=== PATIENT | female | born 1930 | race African-American/Black ===

== ENCOUNTER 2018-06-03 11:37 | Inpatient (IN) | payer MEDICARE ==
[2018-06-03 12:21] LABS: Bilirubin Small (Negative); Blood, Urine Moderate (Negative); Clarity CLOUDY (Clear); Glucose, Urine (Dipstick) Negative (Negative); Leukocyte Negative (Negative); Nitrite Negative (Negative); Protein, Urine (Dipstick) > or equal to 300 mg/dL (Neg-Trace); Specific Gravity, Urine 1.022 (1.002-1.036); pH, Urine 5.5 (5.0-9.0)
[2018-06-03 12:24] LABS: Bacteria/HPF None Seen HPF (None Seen); Pathc Cast-AUWi Flag 1.01 (0-2.49); RBC/HPF 0-3 HPF (0-3); WBC/HPF 0-3 HPF (0-3)
[2018-06-03 12:32] LABS: #Lymphocytes 0.5 thou/uL (1.20-3.40); #Monocytes 0.5 thou/uL (0.11-0.59); #Neutrophils 5.1 thou/uL (1.40-6.50); %Eosinophils 0.5 % (0.0-10.0); %Lymphocytes 8.4 % (21.0-51.0); %Monocytes 7.4 % (0.0-10.0); %Neutrophils 83.7 % (42.0-75.0); Hemoglobin 9.7 g/dL (12.0-16.0); Mean Corpuscular HGB CONC 30.9 g/dL (32.0-36.0); Mean Corpuscular Hemoglobin 29.5 pg (27.0-31.0); Mean Corpuscular Volume 95.2 fL (78.0-98.0); Mean Platelet Volume 11.4 fL (7.4-10.4); Platelet Count 139 thou/uL (130-400); RBC Distribution Width 17.7 % (11.5-14.5); Red Blood Cell (RBC) Count 3.31 mill/uL (4.20-5.40); White Blood Cell (WBC) Count 6.1 thou/uL (4.8-10.8)
[2018-06-03 12:36] LABS: Hyaline Casts/LPF 0-3 HYALINE CAST LPF (0-3 Hyaline)
[2018-06-03 12:37] LABS: Renal Epithelial 0-3 HPF (0-3); Squamous Epithelial 0-3 HPF (0-3); Transitional Epithelial 0-3 HPF (0-3)
[2018-06-03 12:58] LABS: ALT (SGPT) 20 U/L (8-55); AST (SGOT) 92 U/L (5-34); Albumin 3.2 g/dL (3.4-4.8); Alkaline Phosphatase 186 U/L (40-150); Anion Gap 18 mmol/L (10-20); BUN (Urea Nitrogen) 77 mg/dL (9.8-20.1); Bilirubin, Total 0.6 mg/dL (0.2-1.2); Calc. Creatinine Clearance 0 mL/min (70-130); Calcium 8.1 mg/dL (7.8-10.44); Carbon Dioxide 16 mmol/L (23-31); Chloride 117 mmol/L (98-107); Estimated GFR-MDRD 7; Globulin 4.9 g/dL (2.4-3.5); Glucose 121 mg/dL (83-110); Potassium 4.7 mmol/L (3.5-5.1); Protein, Total 8.1 g/dL (6.0-8.3); Sodium 146 mmol/L (136-145)
--- NOTE | 2018-06-03 13:10 | RAD ---
CHEST ONE VIEW: HISTORY: Hypoxic and hypertensive. Altered mental status. COMPARISON: 02/09/2018 FINDINGS: There appears to be atherosclerosis and elongation of the ascending thoracic aorta, incompletely eval uated. The heart is enlarged. There are bilateral pleural and parenchymal changes, right greater th an left. Additional, there are interstitial opacities. There is no pneumothorax or osseous abnormal ity. IMPRESSION: 1. Atherosclerosis and possible elongation or aneurysmal dilatation of the aorta. Dedicated chest C T would be beneficial. 2. Pleural and parenchymal changes in the lung bases, right greater than left. 3. Interstitial opacities due to edema or infiltrate. POS: [facility]
--- NOTE | 2018-06-03 13:14 | CT ---
HEAD CT WITHOUT CONTRAST: HISTORY: Altered mental status. COMPARISON: None. FINDINGS: Age appropriate atrophy. Chronic small vessel ischemic changes of the white matter are noted. No mi dline shift. Basilar cisterns are patent. Cortical lang white matter differentiation is preserved. No evidence of hydrocephalus. No parenchymal hemorrhage or extraaxial hematoma. Mild right maxillary sinus mucosal disease. Adequate aeration of the mastoid air cells. Cavernous c arotid atherosclerosis is noted. The calvarium is intact. Nonspecific calcifications in both paroti d glands. IMPRESSION: No acute intracranial process. POS: [facility]
[2018-06-03] MEDS ORDERED: cefTRIAXone\\ROCEPHIN 2 GM VIAL ONE (14:34)
[2018-06-03] MEDS ORDERED: Sodium Chloride 0.9% 100 ML ONE (14:34)
[2018-06-03] MEDS ORDERED: Azithromycin 500 MG VIAL ONE (15:43)
[2018-06-03] MEDS ORDERED: Sodium Chloride 0.9% 1,000 ML IV SCH (17:30)
[2018-06-03 19:36] VITALS: BMI 34.3
[2018-06-03] MEDS: Dextrose 5% in Water 500 ML IV SCH (20:11)
--- NOTE | 2018-06-03 22:24 | HP ---
CHIEF COMPLAINT: Altered mental status and appetite loss. HISTORY OF PRESENT ILLNESS: The patient is an 88-year-old female who was doing relatively well until recently when she started having some issue with her appetite. She quit eating and taking fluids. She became less responsive to the point that today she was taken to the emergency room for further evaluation because she was not able to communicate with the family at all and they were very concerned about her status. In the emergency room, she was found to have pneumonia, AAA, and renal failure. Apparently, she has a history of renal failure and she resisted hemodialysis for quite some time. There was no any fever or chills. The family did not notice any cough and she is getting admitted to hospitalist service for further evaluation and treatment. PAST MEDICAL HISTORY: 1. Hypertension. 2. Gout. PAST SURGICAL HISTORY: Hysterectomy. MEDICATIONS: Please refer to the medications list. SOCIAL HISTORY: She is ex-smoker, but she quit approximately 30 years ago. She does not drink any alcohol. She does not use any illicit drugs. FAMILY HISTORY: Father had hypertension and diabetes. Mother had some hypertension. Surrogate decision maker is Han Pool, patient's brother, and the code status is do not attempt resuscitation. REVIEW OF SYSTEMS: Reviewed with the patient's family, but they do not have anything else to add in terms of additional symptoms or complaints she had before. PHYSICAL EXAMINATION: VITAL SIGNS: Blood pressure is 153/121, pulse is 103, temperature is 98.3. GENERAL: She is somewhat obtunded, but she is trying to follow my commands. EYES: Pupils are responding to light properly. Conjunctivae are palish. Sclerae are nonicteric. Oral mucosa is very dry. LUNGS: Presenting with crackles bilaterally but mainly in the right base and half way. No wheezes. ABDOMEN: Soft, nontender, and nondistended. EXTREMITIES: 1 to 2+ peripheral edema similar bilaterally nonpitting. NEUROLOGIC: As I mentioned above, she tries to follow my commands, but she is altered. She knows the place, but she does not know time. LABORATORY DATA: Labs showed white count of 6.1, hemoglobin of 9.7, hematocrit 31.5, and platelet count is 139. Sodium of 146, potassium 4.7, chloride 117, CO2 of 17, BUN 77, creatinine 6.64, glucose 121, AST 92, alkaline phosphatase 186, albumin 3.2, globulin 4.9. The rest of chemistry is within normal limits. Urinalysis showed more than 300 of protein, moderate amount of blood, and small amount of bilirubin. EKG showed normal sinus rhythm with nonspecific ST changes, QT interval is prolonged at 388, and QTc at 487 milliseconds. Chest x-ray shows bilateral infiltrates at both bases and possible elongation or aneurysmal dilatation of aorta. The CT of the brain was done and it did not show any acute intracranial processes, just mild right maxillary sinus mucosal disease. IMPRESSION: 1. Acute on chronic kidney failure. 2. Pneumonia. 3. Possible abdominal aortic aneurysm. 4. Hypertension. 5. History of gout. 6. Dehydration with hypernatremia and hyperchloremia. 7. Metabolic acidosis secondary to renal failure. PLAN: Full admission and do not attempt resuscitation. IV normal saline at 75 mL/h. Nephrology consultation with Dr. Webster. Continue Rocephin and Zithromax antibiotics, she was started in the emergency room. Blood cultures and urine cultures. Job ID: [id number]
[2018-06-03 23:33] LABS: Anion Gap 18 mmol/L (10-20); BUN (Urea Nitrogen) 87 mg/dL (9.8-20.1); Calc. Creatinine Clearance 8 mL/min (70-130); Calcium 7.9 mg/dL (7.8-10.44); Carbon Dioxide 18 mmol/L (23-31); Chloride 118 mmol/L (98-107); Estimated GFR-MDRD 6; Glucose 127 mg/dL (83-110); Magnesium 2.2 mg/dL (1.6-2.6); Potassium 4.5 mmol/L (3.5-5.1); Sodium 149 mmol/L (136-145)
--- NOTE | 2018-06-04 03:01 | CON ---
DATE OF CONSULTATION: REASON FOR CONSULTATION: Elevated creatinine and elevated sodium. HISTORY OF PRESENT ILLNESS: This is a very pleasant 88-year-old female who presented to the hospital after having altered mental status, hypoxia, and inability to do activities of daily living. The patient's creatinine was 6.4 on admission. Prior baseline was unavailable. The patient can give no further history. PAST MEDICAL HISTORY: Significant for hypertension, history of obesity, hyperlipidemia, hysterectomy, gout, and hypocalcemia. MEDICATIONS: Home medication list reviewed. Hospital medication list reviewed. ALLERGIES: REVIEWED. REVIEW OF SYSTEMS: Unobtainable. FAMILY HISTORY: Noncontributory. PHYSICAL EXAMINATION: GENERAL: The patient is awake, mildly somnolent. VITAL SIGNS: Pulse 70, breathing 16, blood pressure 100/70. GENERAL APPEARANCE AND MENTAL STATUS: Fair. HEAD/NECK: Normocephalic. Atraumatic. EYES: EOMI. No deformity. EARS: Clear. No ulcers. NOSE: Intact. No lesions. MOUTH: Clear. No discharge. THROAT: Clear. No exudate. LUNGS: Clear. No crackles. CARDIAC: S1, S2. No rub. ABDOMEN: Benign. Bowel sounds positive. GENITALIA/RECTUM: Oconnell absent. BACK/EXTREMITIES: Edema 0+. NEUROLOGICAL: Alert and motor intact. SKIN: LYMPHATICS: LABORATORY DATA: Bicarb 16, sodium 146, creatinine 6.6. IMPRESSION: 1. Acute kidney injury with chronic kidney disease, most likely due to decreased effective arterial blood volume. We would recommend holding of diuretics and starting the patient on half-normal saline. 2. Metabolic acidosis due to renal failure . 3. Hyponatremia. Start free water. No indication for dialysis. We will follow renal function closely. 4. Anemia, stable. Medications based on glomerular filtration rate are appropriate. Job ID: [id number]
[2018-06-04] MEDS: Dextrose 5% in Water 500 ML IV SCH ×2 (05:10→15:40)
[2018-06-04 06:58] LABS: Anion Gap 18 mmol/L (10-20); BUN (Urea Nitrogen) 87 mg/dL (9.8-20.1); Calc. Creatinine Clearance 7 mL/min (70-130); Calcium 7.8 mg/dL (7.8-10.44); Carbon Dioxide 16 mmol/L (23-31); Chloride 118 mmol/L (98-107); Estimated GFR-MDRD 6; Glucose 107 mg/dL (83-110); Potassium 4.5 mmol/L (3.5-5.1); Sodium 147 mmol/L (136-145)
[2018-06-04 07:02] LABS: Band 3 % (5-11); Hemoglobin 8.8 g/dL (12.0-16.0); Hypochromia SLIGHT = 6-15 cells (100X) (0-5/hpf); Lymphocytes 3 % (21-51); MDiff Complete? YES; Mean Corpuscular HGB CONC 32.9 g/dL (32.0-36.0); Mean Corpuscular Hemoglobin 31.2 pg (27.0-31.0); Mean Corpuscular Volume 94.9 fL (78.0-98.0); Mean Platelet Volume 11.8 fL (7.4-10.4); Monocytes 2 % (0-10); Neutrophil 92 % (42-75); Nucleated RBC 1 % (0); Platelet Count 120 thou/uL (130-400); RBC Distribution Width 17.4 % (11.5-14.5); White Blood Cell (WBC) Count 8.9 thou/uL (4.8-10.8)
[2018-06-04] MEDS ORDERED: cloNIDine 0.1 MG TAB PO PRN (08:39)
--- NOTE | 2018-06-04 08:41 | PDOC.EVN ---
Event Note - Event Note Event Note: called by RN for bp 190's systolic - per RN Dr. Webster ordered amlodipine 2.5 mg once. Pt here for pneumonia + KEHINDE with CKD. Will order prn clonidine. Rn states home meds unknown, doctor unknown, pharmacy unknown. Will also add prn hydralazine IV for sbp > 180
[2018-06-04] MEDS ORDERED: Prevnar 13-Val Conj/PF 0.5 ML SYRINGE IM ONE (09:00)
[2018-06-04] MEDS ORDERED: hydrALAZINE 20 MG/ML VIAL SLOW IVP PRN (09:12)
[2018-06-04 10:37] LABS: Bilirubin Small (Negative); Blood, Urine Moderate (Negative); Clarity CLOUDY (Clear); Glucose, Urine (Dipstick) Negative (Negative); Leukocyte Negative (Negative); Nitrite Negative (Negative); Protein, Urine (Dipstick) > or equal to 300 mg/dL (Neg-Trace); Specific Gravity, Urine 1.019 (1.002-1.036); Urobilinogen 0.2 mg/dL (0.2-1.0); pH, Urine 5.5 (5.0-9.0)
[2018-06-04] MEDS ORDERED: Amlodipine 5 MG TAB PO SCH (10:45)
[2018-06-04 10:46] LABS: Pathc Cast-AUWi Flag 8.72 (0-2.49)
[2018-06-04 10:56] LABS: Hyaline Casts/LPF 0-3 HYALINE CAST LPF (0-3 Hyaline); Other Casts/LPF None Seen LPF (0-3 Hyaline)
[2018-06-04 10:57] LABS: Squamous Epithelial 0-3 HPF (0-3)
[2018-06-04 10:58] LABS: Bacteria/HPF Rare-Few HPF (None Seen); Crystals/HPF 1+ AMORPH URATES HPF (Negative)
[2018-06-04] MEDS ORDERED: Carvedilol 6.25 MG TAB PO SCH (11:00)
[2018-06-04] MEDS ORDERED: Carvedilol 3.125 MG TAB PO SCH ×2 (11:15→17:00)
--- NOTE | 2018-06-04 12:07 | PDOC.PN ---
- Subjective Encounter Start Date: 06/04/18 (f/u pneumonia) Encounter Start Time: 12:05 Subjective: Pt reports she is not hungry. Denies any pain/nausea - Objective Resuscitation Status - Order Detail: 06/03/18 15:48 Resuscitation Status Routine Resuscitation Status: DNAR: NO Resuscitation Discussed with: family members Vital Signs & Weight: Vital Signs (12 hours) Temp Pulse Resp BP Pulse Ox 06/04/18 11:43 97.8 F 96 16 161/72 H 96 06/04/18 09:28 137/91 H 06/04/18 08:40 97.4 F L 94 20 217/131 H 98 06/04/18 04:02 97.8 F 107 H 17 188/82 H 96 Weight Weight 194 lb Result Diagrams: 06/04/18 05:52 06/04/18 05:52 EKG Reviewed by me: Yes (tele with pac's, frequent svt overnight) Phys Exam - Physical Examination Constitutional: NAD Respiratory: no wheezing, no rhonchi basilar rales bilateral Cardiovascular: no significant murmur, irregular Gastrointestinal: soft, non-tender, no distention, positive bowel sounds Musculoskeletal: no edema Deviation from normal: pt awake and responsive Skin: no rash Dx/Plan (1) Pneumonia Code(s): J18.9 - PNEUMONIA, UNSPECIFIED ORGANISM Status: Acute Qualifiers: Pneumonia type: due to unspecified organism Laterality: bilateral Lung location: lower lobe of lung Qualified Code(s): J18.1 - Lobar pneumonia, unspecified organism (2) Tachyarrhythmia Code(s): R00.0 - TACHYCARDIA, UNSPECIFIED Status: Acute (3) CKD (chronic kidney disease) stage 5, GFR less than 15 ml/min Code(s): N18.5 - CHRONIC KIDNEY DISEASE, STAGE 5 Status: Chronic (4) Hypertension Code(s): I10 - ESSENTIAL (PRIMARY) HYPERTENSION Status: Chronic Qualifiers: Hypertension type: essential hypertension Qualified Code(s): I10 - Essential (primary) hypertension - Plan * appreciate Nephrology consult = currently on IVF * Consult cardiology and echo ordered. start carvedilol to manage the tachyarrhythmia * Low appetite - consult palliative care * deconditioned - pt/ot * pneumonia - continue current antibiotics * * discussed with brother current condition and that pt is not her normal self. He has questions about the effect of dialysis on quality and quantity of life and will discuss this with Dr. Webster. * * pt remains at high risk in current condition * .
[2018-06-04] MEDS ORDERED: cefTRIAXone\\ROCEPHIN 1 GM in Sodium Chloride 0.9% 100 ML IVPB SCH (15:00)
--- NOTE | 2018-06-04 15:17 | PRG ---
DATE OF SERVICE: 06/04/2018 SUBJECTIVE: An 88-year-old female, being seen for acute kidney injury. The patient denied nausea, vomiting, or chest pain. OBJECTIVE: CONSTITUTIONAL: The patient is awake, alert, in no acute distress. VITAL SIGNS: Afebrile. Pulse 96, breathing 16, blood pressure 161/72. GENERAL APPEARANCE AND MENTAL STATUS: Fair. HEAD/NECK: Normocephalic. Atraumatic. EYES: EOMI. No deformity. EARS: Clear. No ulcers. NOSE: Intact. No lesions. MOUTH: Clear. No discharge. THROAT: Clear. No exudate. LUNGS: Clear. No crackles. CARDIAC: S1, S2. No rub. ABDOMEN: Benign. Bowel sounds positive. GENITALIA/RECTUM: Oconnell absent. BACK/EXTREMITIES: Edema 0+. NEUROLOGICAL: Alert and motor intact. SKIN: LYMPHATICS: LABORATORY DATA: Labs show hemoglobin 8.8, creatinine 7.2. ASSESSMENT AND RECOMMENDATION: 1. Acute kidney injury with progressive worsening in renal function. Continue hydration. 2. Hyponatremia, continue fluid. 3. Hypokalemia, stable. 4. Metabolic acidosis, stable. 5. Medications based on GFR, appropriate. No urgent indication for dialysis. We will follow closely. Job ID: [id number]
--- NOTE | 2018-06-04 15:50 | CON ---
DATE OF CONSULTATION: REASON FOR CONSULTATION: Dysrhythmia. HISTORY OF PRESENT ILLNESS: Ms. Geiger is an 88-year-old woman, who had not been seen or evaluated by Cardiology in the past. She has underlying history of dementia. She originally presented with failure to thrive. She had poor p.o. intake and poor fluid intake. Mrtrjpq-yn-wwl states she was found with urine in the bed. She had not moved. She had no complaints, but given her underlying dementia, it is difficult to assess. The patient is unable to give a reasonable history. She also presented with markedly elevated creatinine of 6.8. PAST MEDICAL HISTORY: 1. Hypertension. 2. Hypocalcemia. 3. Hysterectomy. 4. Hyperlipidemia. 5. Gout. ALLERGIES: NONE. REVIEW OF SYSTEMS: Unobtainable given underlying dementia. HOME MEDICATIONS: Include 1. Pravastatin. 2. Nifedipine. 3. Carvedilol. 4. Allopurinol. 5. Lasix. PHYSICAL EXAMINATION: GENERAL: Patient is a pleasant 88-year-old who is in no acute distress. The patient appears their stated age. She is not oriented to time, person, or place. VITAL SIGNS: Blood pressure 161/72, pulse 96, and temperature 97.8. NEUROLOGIC: The patient is alert and oriented x3 with no focal neurologic deficits. HEENT: Sclerae without icterus. Mouth has moist mucous membranes with normal pallor. NECK: No JVD. Carotid upstroke brisk. No bruits bilaterally. LUNGS: Clear to auscultation with unlabored respirations. BACK: No scoliosis or kyphosis. CARDIAC: Regular rate and rhythm with normal S1 and S2. No S3 or S4 noted. No significant rubs, murmurs, thrills, or gallops noted throughout the precordium. PMI is not displaced. There is no parasternal heave. ABDOMEN: Soft, nontender, nondistended. No peritoneal signs present. No hepatosplenomegaly. No abnormal striae. EXTREMITIES: 2+ femoral and 2+ dorsalis pedis pulses. No cyanosis, clubbing, or edema. SKIN: No gross abnormalities. PERTINENT LABORATORY DATA: Sodium 147, potassium 4.5, chloride 118, CO2 of 16, creatinine 7.27, and magnesium 2.2. AST 92, ALT 20, albumin level 3.2. Hemoglobin 8.8, platelet count of 120. Telemetry monitoring shows multiple runs of SVT. IMPRESSION: 1. Dysrhythmia. 2. Acute on chronic renal failure. 3. Failure to thrive. RECOMMENDATIONS: Certainly difficult to treat at this point given her creatinine. It would be reasonable to proceed with digoxin, but given a creatinine of 7, we will hold off for now. We will add IV Cardizem for stabilization of her rate. Her magnesium level appears stable. Calcium level also appears within normal limits. If her creatinine does stabilize, her CT may also stabilize. We will review her echo. Job ID: [id number]
[2018-06-04] MEDS ORDERED: Azithromycin 500 MG in Sodium Chloride 0.9% 250 ML 250 ML IVPB SCH (16:00)
[2018-06-04] MEDS ORDERED: Dextrose 5% in Water 1,000 ML IV SCH (16:00)
[2018-06-04 16:20] VITALS: BP 169/72; TEMP 99
--- NOTE | 2018-06-04 16:25 | ULT ---
ULTRASOUND RENAL BILATERAL STANDARD: History Chronic kidney disease. COMPARISON: None. TECHNIQUE: Real-time, lang scale, and color evaluation of the kidneys and urinary bladder was performed. FINDINGS: The right kidney is not visualized. The left kidney measures 9 x 5.1 x 4.9 cm with increased echotex ture. Left renal cyst measures 1.6 cm in size. Urinary bladder is decompressed with Oconnell catheter. IMPRESSION: 1. Increased echotexture to the left kidney suggesting left renal disease. 2. Small right effusion. 3. Nonvisualized right kidney. POS: [facility]
--- NOTE | 2018-06-04 19:40 | PDOC.EVN ---
Event Note - Event Note Event Note: called by RN for junctional rhythm in the 20's, pt confirmed DNAR status. Requested that RN pronounce/confirm passing - asystole at 19:27. Autopsy not requested. Family members notified by the nursing staff.
--- NOTE | 2018-06-05 05:01 | DIS ---
DATE OF ADMISSION: 06/03/2018 DATE OF DISCHARGE: 06/04/2018 SUMMARY: DATE OF : June 04, 2018. TIME OF : 1927 hours. HISTORY OF PRESENT ILLNESS: This was an 88-year-old female who was admitted yesterday secondary to decreased p.o. intake, decreased appetite, and decreased responsiveness. In the emergency room, the patient was found to have pneumonia, worsening renal function, and admitted to the hospital. The patient has a history of hypertension, known kidney disease, and has refused dialysis for quite some time. HOSPITAL COURSE: The patient was admitted to the hospital, evaluated by Dr. Webster of Nephrology, with recommendation of starting IV fluids to see if she has improved renal function. She also underwent a renal ultrasound that showed renal disease , small right effusion, and a nonvisualized right kidney. Overnight into today, her creatinine was more elevated, she continued to have a metabolic acidosis and was slightly hypernatremic. During this hospitalization, there was felt to be no acute indication for dialysis. The patient has been monitored on telemetry while here and had a tachyarrhythmia that going up as high as 200s as well as frequent PACs. She was started on a low-dose beta nohemy, underwent echocardiogram today, which was notable for an ejection fraction of 35% to 40%, mild concentric LVH, [id number] mitral regurgitation. She was evaluated by cardiology with recommendation for IV Cardizem for the dysrhythmia. There was consideration for digoxin, however, due to her renal function, this was held. For the pneumonia diagnosed on admission, the patient was continued on azithromycin and ceftriaxone. I met with the patient's brother earlier today and discussed the difficult situation with regard to her renal function, the history of refusing dialysis as well as the current situation. Her brother also met with Dr. Webster and Palliative Care and the plan was to re-evaluate in 3 days (Thursday). The patient's do not attempt to resuscitation order was on the chart from the time of admission and this was confirmed with an out-of hospital DNR created. The patient was stable and hypertensive throughout the day for which she received one dose of clonidine this morning, one dose of Carvedilol, and one dose of amlodipine. At approximately 7 p.m., she was noted to go into a junctional rhythm into the 20s and she soon after that. At the time of status change, the nursing staff contacted family members. Due to age, co-morbidities, and current presentation, an autopsy was not requested. CAUSE OF : Dysrhythmia secondary to glwxg-kx-ccrcwwq kidney disease. SECONDARY DIAGNOSES: 1. Hypertension. 2. Chronic kidney disease stage 5. 3. Gout. 4. Dyslipidemia. Job ID: [id number] MTDD
--- NOTE | 2018-06-05 17:32 | EKG ---
Test Reason : Blood Pressure : / mmHG Vent. Rate : 095 BPM Atrial Rate : 095 BPM P-R Int : 168 ms QRS Dur : 096 ms QT Int : 388 ms P-R-T Axes : -01 -22 120 degrees QTc Int : 487 ms Normal sinus rhythm Nonspecific T wave abnormality Prolonged QT Abnormal ECG Confirmed by NATHAN HATFIELD, MAGGIE ([id number]), features editor ROSALBA REY ([id number]) on 06/05/2018 5:32:26 PM Referred By: Confirmed By:MAGGIE EVANS MD
--- NOTE | 2018-06-10 13:08 | PQF ---
[facility] [id number] [facility]-256 [id number] CLINICAL DOCUMENTATION CLARIFICATION FORM: POST DISCHARGE DATE: 06/10/2018 ATTN: Dr. Pantoja Please exercise your independent, professional judgment in responding to the clarification form. Clinical indicators are provided on the bottom of this form for your review Please check appropriate box(s) to clarify if the following diagnosis has been ruled in or ruled out: Sepsis [ ] Ruled in diagnosis [ ] Continue to treat [ ] Resolved [ ] Ruled out diagnosis [ ] Cannot rule out diagnosis [ ] Other diagnosis (please specify) [XX ] Unable to determine - This patient had significant decline from her renal function and heart - I dont think her presentation was from sepsis. In addition, please specify: Present on Admission (POA): [ ] Yes [ ] No [ XX] Unable to determine For continuity of documentation, please document condition throughout progress notes and discharge summary. Thank You. CLINICAL INDICATORS - SIGNS / SYMPTOMS / LABS Per ED record: Sepsis activation BP 172/107; 185/112; 156/96; 147/93; 153/105 P 98-118 RR 18-30 H&P (NELSON): Impression: Acute on Chronic Kidney Failure; PNA; HTN: dehydration w/ hypernatremia and hypochloremia; metabolic acidosis Quit eating and taking fluids Less responsive was not able to communicate w/ family; somewhat obtunded but trying to follow commands; knows the place, but does not know time. Crackles bilaterally, but mainly in right base and half way. 1-2+ peripheral edema similar bilaterally, non-pitting - (WILKINSON): Underlying HX of dementia; failure to thrive; poor PO intake; found w/ urine in bed has not moved; Not oriented to time, person, or place. RISK FACTORS H&P (NELSON): Acute on Chronic Kidney Failure; PNA; HTN: dehydration w/ hypernatremia and hypochloremia; metabolic acidosis 12-28 ([facility]): Underlying HX of dementia; failure to thrive; poor PO intake TREATMENTS MAR: 06-03 IVF NS 1L 06-03 / 06-04 Zithromax IV and Rocephin IV 06-04 D5W IVF 06-03 BLD cultures and Urine Cultures no growth in 5 days 06-[address] 06-04 Echo: EF 35-40% - Diastolic dysfunction (This form is maintained as a part of the permanent medical record) 2014 [employer] All Rights Reserved Aaliyah [email or web address] [phone] [facility]
--- NOTE | 2018-06-10 13:26 | PQF ---
[facility]IMMI[facility] SANTIAGOJOSSELIN SCHULTZ [id number] [facility]-256 [id number] CLINICAL DOCUMENTATION CLARIFICATION FORM: POST DISCHARGE DATE: 06/10/2018 ATTN: Dr. Pantoja Please exercise your independent, professional judgment in responding to the clarification form. Clinical indicators are provided on the bottom of this form for your review Please check appropriate box(s): [ XX ] Encephalopathy: Type: [ ] Acute [ XX ] Subacute [ ] Chronic Etiology: [ XX ] Metabolic [ ] Toxic [ ] Hypoxic [ ] Septic [ ] Unspecified [ ] in the setting of underlying dementia [XX ] Other (please specify) - in the context of underlying signficant kidney disease and dementia [ ] Transient Alteration of Awareness [ ] Other diagnosis (please specify) [ ] Unable to determine In addition, please specify: Present on Admission (POA): [ XX ] Yes [ ] No [ ] Unable to determine For continuity of documentation, please document condition throughout progress notes and discharge summary. Thank You. CLINICAL INDICATORS - SIGNS / SYMPTOMS / LABS ED: AMS; Hypoxia Sepsis activation BP 172/107; 185/112; 156/96; 147/93; 153/105 P 98-118 RR 18-30 O2 SAT 88% ON RA; 95-98% ON 2-4LNC Pt is lethargic, only arouses every once in a while by significant stimulation, unable to cooperate, not oriented H&P (NELSON): Impression: Acute on Chronic Kidney Failure; PNA; HTN: dehydration w/ hypernatremia and hypochloremia; metabolic acidosis Quit eating and taking fluids Less responsive was not able to communicate w/ family; somewhat obtunded but trying to follow commands; knows the place, but does not know time. Crackles bilaterally, but mainly in right base and half way. 1-2+ peripheral edema similar bilaterally, non-pitting -28 (WILKINSON): Underlying HX of dementia; failure to thrive; poor PO intake; found w/ urine in bed has not moved; Not oriented to time, person, or place. RISK FACTORS HH&P (NELSON): Acute on Chronic Kidney Failure; PNA; HTN: dehydration w/ hypernatremia and hypochloremia; metabolic acidosis 12-28 (WILKINSON): Underlying HX of dementia; failure to thrive; poor PO intake TREATMENTS: ED: Oxygen: 2LNC increased to 4L NC 06-03 on floor 4LNC O2 sat 99% MAR: 06-03 IVF NS 1L 06-03 / 06-04 Zithromax IV and Rocephin IV 06-04 D5W IVF 06-03/06-04 BLD cultures and Urine Cultures no growth in 5 days 06-[address] 06-04 Echo: EF 35-40% - Diastolic dysfunction (This form is maintained as a part of the permanent medical record) 2014 [employer]. All Rights Reserved Aaliyah [email or web address] [phone] MTDJose Manuel
--- NOTE | 2018-06-10 13:39 | PQF ---
KIMMIE SANTIAGOJOSSELIN SCHULTZ [id number] [facility]-256 [id number] CLINICAL DOCUMENTATION CLARIFICATION FORM: POST DISCHARGE DATE: 06/10/2018 ATTN: Dr. Pantoja Please exercise your independent, professional judgment in responding to the clarification form. Clinical indicators are provided on the bottom of this form for your review Please check appropriate box(s): [ XX ] Acute Respiratory Failure: [ XX ] with Hypoxia[ ] with Hypercapnia [ ] Acute On Chronic Respiratory Failure: [ ] with Hypoxia [ ] with Hypercapnia [ ] Acute Respiratory Failure due to: (etiology) [ ] Chronic Respiratory Failure only [ ] with Hypoxia [ ] with Hypercapnia [ ] Hypoxia [ ] Other diagnosis (please specify) [ ] Unable to determine In addition, please specify: Present on Admission (POA): [XX ] Yes [ ] No [ ] Unable to determine For continuity of documentation, please document condition throughout progress notes and discharge summary. Thank You. CLINICAL INDICATORS - SIGNS / SYMPTOMS / LABS ED: AMS; Hypoxia Sepsis activation BP 172/107; 185/112; 156/96; 147/93; 153/105 P 98-118 RR 18-30 O2 SAT 88% ON RA; 95-98% ON 2-4LNC Pt is lethargic, only arouses every once in a while by significant stimulation, unable to cooperate, not oriented H&P (NELSON): Impression: Acute on Chronic Kidney Failure; PNA; HTN: dehydration w/ hypernatremia and hypochloremia; metabolic acidosis Quit eating and taking fluids Less responsive was not able to communicate w/ family; somewhat obtunded but trying to follow commands; knows the place, but does not know time. Crackles bilaterally, but mainly in right base and half way. 1-2+ peripheral edema similar bilaterally, non-pitting -28 (W[facility]KINSON): Underlying HX of dementia; failure to thrive; poor PO intake; found w/ urine in bed has not moved; Not oriented to time, person, or place. RISK FACTORS H&P (NELSON): Acute on Chronic Kidney Failure; PNA; HTN: dehydration w/ hypernatremia and hypochloremia; metabolic acidosis -28 (MINH): Underlying HX of dementia; failure to thrive; poor PO intake TREATMENTS: ED: Oxygen: 2LNC increased to 4L NC 06-03 on floor 4LNC O2 sat 99% MAR: 06-03 IVF NS 1L 06-03 / 06-04 Zithromax IV and Rocephin IV 06-04 D5W IVF 06-03/06-04 BLD cultures and Urine Cultures no growth in 5 days 06-[address] 06-04 Echo: EF 35-40% - Diastolic dysfunction (This form is maintained as a part of the permanent medical record) 2014 [employer]. All Rights Reserved Aaliyah [email or web address] [phone] MTDD
--- NOTE | 2018-06-11 15:35 | PDOC.EVN ---
Event Note - Event Note Event Note: Addendum to last progress note - additional diagnoses on for 04 Jun 2018: 1. Acute respiratory failure with hypoxia 2. Metabolic encephalopathy - likely subacute
== END 2018-06-04 23:20 | disposition expired | DRG 682 ==
LOC: ERS 11:37 → ERHOLD 15:41 → 2NO 18:45
PROVIDERS: ADMIT Internal Medicine; ATTEND Internal Medicine
DX: N17.9 Acute kidney failure, unspecified (principal); J96.01 Acute respiratory failure with hypoxia; J18.9 Pneumonia, unspecified organism; E87.0 Hyperosmolality and hypernatremia; E87.2 Acidosis; I12.0 Hypertensive chronic kidney disease with stage 5 chronic kidney disease or end stage renal disease; I47.1 Supraventricular tachycardia; G93.49 Other encephalopathy; N18.5 Chronic kidney disease, stage 5; Z51.5 Encounter for palliative care; Z66 Do not resuscitate; M10.9 Gout, unspecified; E86.0 Dehydration; E87.8 Other disorders of electrolyte and fluid balance, not elsewhere classified; F03.90 Unspecified dementia, unspecified severity, without behavioral disturbance, psychotic disturbance, mood disturbance, and anxiety; R62.7 Adult failure to thrive; Z79.899 Other long term (current) drug therapy
CPT/HCPCS: 36415; 36416; 51701; 70450; 71045; 76770; 80048; 80053; 81001; 81003; 81015; 83605; 83735; 85025; 87040; 93005; 93010; 93306; 96365; 96366; 96367; A4353; G8978-GP-CM; G8979-GP-CK; G8996-GN-CK; G8997-GN-CK; J0456; J0696; J7050